=== PATIENT | female | born 1940 | race Caucasian/White ===

== ENCOUNTER 2018-12-31 13:44 | Emergency (ER) | payer MEDICARE, OTHER ==
[2018-12-31] MEDS ORDERED: hydrOXYzine HCl 50 MG/ML SDV IM ONE (13:52)
[2018-12-31] MEDS ORDERED: Albuterol/Ipratropium 3.0-0.5 MG/3 ML Neb Soln NEB ONE (13:53)
[2018-12-31] MEDS ORDERED: methylPREDNISolone Sodium Succinate 125 MG/2 ML SDV IVPUSH ONE (13:54)
--- NOTE | 2018-12-31 13:56 | EDM.PDOC ---
ED HPI GENERAL MEDICAL PROBLEM - General Stated Complaint: SOB Time Seen by Provider: 12/31/18 13:44 Source of Information: Reports: Patient, EMS, Family History Limitations: Reports: Respiratory Distress - History of Present Illness INITIAL COMMENTS - FREE TEXT/NARRATIVE: 78 y.o.w.f came by EMS to the ED after she broke out with a rash with itching throughout her entire integument and chills. She has SOB as well. No tongue swelling, however. Pt did not have any drug allergy in the past. No exposure to environmental hazards. No N/V/D or any other acute med issues. BP 139/86 pulse 73 RR22 Pulse ox on RA was 90 and on 2 liters O2 by NC 94 % Temp. No fever as per nurse. Please see the nursing note. Onset Date: 12/31/18 Onset Time: 10:00 Duration: Hour(s):, Constant, Getting Worse Location: Reports: Generalized Quality: Reports: Other (itch) Severity: Mild Improves with: Reports: None Worsens with: Reports: None Context: Reports: Other (gen rash and SOB after taking PCN) Associated Symptoms: Reports: Shortness of Breath, Other (chills) - Related Data Allergies Allergy/AdvReac Type Severity Reaction Status Date / Time No Known Allergies Allergy Verified 12/31/18 13:53 Home Meds: Home Meds Aspirin [Halfprin] 81 mg PO DAILY 06/05/18 [History] Calcium Carbonate/Vitamin D3 [Calcium 500 + Vit D Caplet] 1 tab PO BID 06/05/18 [History] Fluticasone/Salmeterol [Advair 100-50] 1 puff INH BEDTIME 06/05/18 [History] Latanoprost [Xalatan 0.005% Ophth Soln] 1 drop EYEBOTH BEDTIME 06/05/18 [History ] Levothyroxine 150 mcg PO DAILY 06/05/18 [History] Metoprolol Tartrate 50 mg PO BID 06/05/18 [History] Multivitamin [Daily Adrienne] 1 tab PO DAILY 06/05/18 [History] Amoxicillin/Clavulanate K [Augmentin 875-125 MG] 1 tab PO BID 12/31/18 [History] Ciprofloxacin [Ciprofloxacin HCl] 500 mg PO BID #20 tab 12/31/18 [Rx] hydrOXYzine pamoate [Vistaril] 50 mg PO Q6H PRN #18 cap 12/31/18 [Rx] predniSONE [Prednisone] 10 mg PO ASDIRECTED 12/31/18 [History] Past Medical History - Past Health History Medical/Surgical History: Denies Medical/Surgical History HEENT History: Reports: Glaucoma, Impaired Vision Cardiovascular History: Reports: Other (See Below) Other Cardiovascular History: on screening for hypertension. Respiratory History: Reports: Asthma, COPD [employer] History: Reports: Musculoskeletal History: Reports: Osteoarthritis, Other (See Below) Other Musculoskeletal History: degenerative joint disease, lumbago Endocrine/Metabolic History: Reports: Hypothyroidism - Past Surgical History Endocrine Surgical History: Reports: None Social & Family History - Family History Family Medical History: Noncontributory - Caffeine Use Caffeine Use: Reports: Coffee, Tea ED ROS GENERAL - Review of Systems Review Of Systems: See Below Constitutional: Reports: Other (chills) HEENT: Reports: No Symptoms Respiratory: Reports: Shortness of Breath Cardiovascular: Reports: No Symptoms Endocrine: Reports: No Symptoms GI/Abdominal: Reports: No Symptoms : Reports: No Symptoms Musculoskeletal: Reports: No Symptoms Skin: Reports: Erythema, Urticaria (generalized) Neurological: Reports: No Symptoms Psychiatric: Reports: No Symptoms Hematologic/Lymphatic: Reports: No Symptoms Immunologic: Reports: No Symptoms ED EXAM, GENERAL - Physical Exam Exam: See Below Exam Limited By: Respiratory Distress General Appearance: Alert, WD/WN, Mild Distress, Moderate Distress Eye Exam: Bilateral Eye: Normal Inspection Ears: Normal External Exam, Normal Canal Ear Exam: Bilateral Ear: Auricle Normal Nose: Normal Inspection, Normal Mucosa, No Blood Throat/Mouth: Normal Lips, Normal Voice, No Airway Compromise Head: Atraumatic, Normocephalic Neck: Normal Inspection, Supple, Non-Tender, Full Range of Motion Respiratory/Chest: Wheezing, Prolonged Expiration Cardiovascular: Normal Peripheral Pulses, Regular Rate, Rhythm, No Edema, No Gallop, No JVD, No Murmur Peripheral Pulses: 2+: Brachial (L) GI/Abdominal: Normal Bowel Sounds, Soft, Non-Tender, No Organomegaly, No Mass, Pelvis Stable (Female) Exam: Deferred Rectal (Female) Exam: Deferred Back Exam: Normal Inspection, Full Range of Motion Extremities: Normal Inspection, Normal Range of Motion, Non-Tender, No Pedal Edema, Normal Capillary Refill Neurological: Alert, Oriented, CN II-XII Intact, Normal Cognition, No Motor/ Sensory Deficits Psychiatric: Normal Affect, Normal Mood Skin Exam: Warm, Dry, Intact, Rash (urticarial) Lymphatic: No Adenopathy Course - Vital Signs Text/Narrative:: 78 y.o.w.f came by EMS to the ED after she broke out with a rash with itching throughout her entire integument and chills. She has SOB as well. No tongue swelling, however. Pt did not have any drug allergy in the past. No exposure to environmental hazards. No N/V/D or any other acute med issues. BP 139/86 pulse 73 RR22 Pulse ox on RA was 90 and on 2 liters O2 by NC 94 % Temp. No fever as per nurse. Please see the nursing note. PE: WNWD W F in resp distress and a PCN rash. Imaging: Mela CT Chest: Neg for PE as per RAD LabS: WBC 14K HCT 16.6 D Dimer 1.12 BUN 19 Cr 1.0 GFR 53 Lactic acid 3.4 Trop 0.017 Impression: Allergy to PCN with a urticarial rash and drug induced asthma. Elevated D Dimer Tx: Duoneb, Solu Medrol, Vistaril. Reexam: Rash sub subsided, Exp wheezing subsided. Pt was on 95% on RA on D/C, was ambulating fine Castillo: D/C with instructions Last Recorded V/S: Last Vital Signs Temp Pulse 82 12/31/18 13:53 Resp 22 H 12/31/18 13:44 BP 139/86 12/31/18 13:44 Pulse Ox 96 12/31/18 13:44 - Orders/Labs/Meds Orders: Active Orders 24 hr Category Date Time Status RT Aerosol Therapy [RC] ASDIRECTED Care 12/31/18 13:53 Active Ang Chest [CT] Stat Exams 12/31/18 14:54 Taken Sodium Chloride 0.9% [Saline Flush] Med 12/31/18 14:06 Active 10 ml FLUSH ASDIRECTED PRN Saline Lock Insert [OM.PC] Routine Oth 12/31/18 14:06 Ordered Medication Orders Sodium Chloride (Saline Flush) 10 ml FLUSH ASDIRECTED PRN PRN Reason: Keep Vein Open Last Admin: 12/31/18 14:30 Dose: 10 ml Labs: Laboratory Tests 12/31/18 12/31/18 12/31/18 Range/Units 14:10 14:10 14:10 WBC 14.0 H (4.5-12.0) X10-3/uL RBC 5.14 (3.23-5.20) x10(6)uL Hgb 16.7 H (11.5-15.5) g/dL Hct 48.0 (30.0-51.3) % MCV 93.4 (80-96) fL MCH 32.5 (27.7-33.6) pg MCHC 34.8 (32.2-35.4) g/dL RDW 12.3 (11.5-15.5) % Plt Count 257 (125-369) X10(3)uL MPV 8.8 (7.4-10.4) fL Neut % (Auto) 57.6 (46-82) % Lymph % (Auto) 35.4 (13-37) % Webb % (Auto) 5.2 (4-12) % Eos % (Auto) 2 (1.0-5.0) % Baso % (Auto) 0 (0-2) % Neut # (Auto) 8.1 (1.6-8.3) # Lymph # (Auto) 5.0 (0.6-5.0) # Webb # (Auto) 0.7 (0.0-1.3) # Eos # (Auto) 0.2 (0.0-0.8) # Baso # (Auto) 0.0 (0.0-0.2) # PT 10.0 (8.7-11.1) INR 1.03 (0.89-1.13) D-Dimer, Quantitative 1.12 H (0.0-0.59) mg/LFEU Sodium 139 (135-145) mmol/L Potassium 3.7 (3.5-5.3) mmol/L Chloride 103 (100-110) mmol/L Carbon Dioxide 23 (21-32) mmol/L BUN 19 H (7-18) mg/dL Creatinine 1.0 (0.55-1.02) mg/dL Est Cr Clr Drug Dosing 36.08 mL/min Estimated GFR (MDRD) 53 L (>60) BUN/Creatinine Ratio 19.0 (9-20) Glucose 157 H (80-116) mg/dL Lactic Acid (0.4-2.2) mmol/L Calcium 9.9 (8.6-10.2) mg/dL Troponin I (<0.017-0.056) ng/mL 12/31/18 12/31/18 Range/Units 14:10 14:10 WBC (4.5-12.0) X10-3/uL RBC (3.23-5.20) x10(6)uL Hgb (11.5-15.5) g/dL Hct (30.0-51.3) % MCV (80-96) fL MCH (27.7-33.6) pg MCHC (32.2-35.4) g/dL RDW (11.5-15.5) % Plt Count (125-369) X10(3)uL MPV (7.4-10.4) fL Neut % (Auto) (46-82) % Lymph % (Auto) (13-37) % Webb % (Auto) (4-12) % Eos % (Auto) (1.0-5.0) % Baso % (Auto) (0-2) % Neut # (Auto) (1.6-8.3) # Lymph # (Auto) (0.6-5.0) # Webb # (Auto) (0.0-1.3) # Eos # (Auto) (0.0-0.8) # Baso # (Auto) (0.0-0.2) # PT (8.7-11.1) INR (0.89-1.13) D-Dimer, Quantitative (0.0-0.59) mg/LFEU Sodium (135-145) mmol/L Potassium (3.5-5.3) mmol/L Chloride (100-110) mmol/L Carbon Dioxide (21-32) mmol/L BUN (7-18) mg/dL Creatinine (0.55-1.02) mg/dL Est Cr Clr Drug Dosing mL/min Estimated GFR (MDRD) (>60) BUN/Creatinine Ratio (9-20) Glucose (80-116) mg/dL Lactic Acid 3.4 H (0.4-2.2) mmol/L Calcium (8.6-10.2) mg/dL Troponin I < 0.017 L (<0.017-0.056) ng/mL Meds: Medications Generic Name Dose Route Start Last Admin Trade Name Freq PRN Reason Stop Dose Admin Sodium Chloride 10 ml 12/31/18 14:06 12/31/18 14:30 Saline Flush FLUSH 10 ml ASDIRECTED PRN Administration Keep Vein Open Discontinued Medications Generic Name Dose Route Start Last Admin Trade Name Freq PRN Reason Stop Dose Admin Albuterol/Ipratropium 3 ml 12/31/18 13:53 12/31/18 13:59 Duoneb 3.0-0.5 Mg/3 Ml NEB 12/31/18 13:54 3 ml ONETIME ONE Administration Ciprofloxacin 500 mg 12/31/18 16:07 12/31/18 16:21 Ciprofloxacin Hcl PO 12/31/18 16:08 500 mg ONETIME ONE Administration Hydroxyzine HCl 50 mg 12/31/18 13:52 12/31/18 14:01 Vistaril IM 12/31/18 13:53 50 mg ONETIME ONE Administration Iopamidol 100 ml 12/31/18 15:14 12/31/18 15:19 Isovue-370 (76%) IV 12/31/18 15:15 85 ml . DIRECTED ONE Administration Methylprednisolone Sodium Succinate 125 mg 12/31/18 13:54 12/31/18 14:05 Solu-Medrol IVPUSH 12/31/18 13:55 125 mg ONETIME ONE Administration Departure - Departure Time of Disposition: 16:26 Disposition: Home, Self-Care 01 Condition: Good Clinical Impression: Allergy to penicillin, Urticaria due to drug allergy - Discharge Information Prescriptions: Ciprofloxacin [Ciprofloxacin HCl] 500 mg PO BID #20 tab hydrOXYzine pamoate [Vistaril] 50 mg PO Q6H PRN #18 cap PRN Reason: for itching and a rash Instructions: Drug Allergy, [id number] Referrals: Annabella Cash NP [Primary Care Provider] - Forms: ED Department Discharge Additional Instructions: Please stop taking Amoxicillin/Pennicillin, please take Cipro instead. Please your usual dose of prednison tonight and continue your regular meds tomorrow. Please follow up, come back if your symptoms get worse acutely - My Orders Last 24 Hours: My Active Orders 12/31/18 13:53 RT Aerosol Therapy [RC] ASDIRECTED 12/31/18 14:06 Sodium Chloride 0.9% [Saline Flush] 10 ml FLUSH ASDIRECTED PRN Saline Lock Insert [OM.PC] Routine 12/31/18 14:54 Ang Chest [CT] Stat - Assessment/Plan Last 24 Hours: My Active Orders 12/31/18 13:53 RT Aerosol Therapy [RC] ASDIRECTED 12/31/18 14:06 Sodium Chloride 0.9% [Saline Flush] 10 ml FLUSH ASDIRECTED PRN Saline Lock Insert [OM.PC] Routine 12/31/18 14:54 Ang Chest [CT] Stat
[2018-12-31 14:01] VITALS: BP 139/86
[2018-12-31] MEDS ORDERED: Sodium Chloride 0.9% 10 ML Syringe FLUSH PRN (14:06)
[2018-12-31] MEDS ORDERED: Iopamidol 755 Mg/ML 100 ML Bottle IV ONE (15:14)
[2018-12-31] MEDS ORDERED: Ciprofloxacin 500 MG Tab PO ONE (16:07)
--- NOTE | 2019-01-01 08:18 | CT ---
INDICATION: Short of breath. D-dimer elevated. Question pulmonary emboli. COMPUTERIZED TOMOGRAPHY ANGRIOGRAPHY OF THE CHEST WITH CONTRAST: Spiral 1.25 mm axial sections were obtained through the chest with sagittal and coronal reconstructions utilizing 85 ml Isovue 370 at 3 cc per second 12/31/18--no comparisons. Total exam DLP =816.18 mGy-cm. Calcifications are noted in the aortic arch and coronary arteries. The heart appears slightly enlarged. No pericardial effusion was seen. No mediastinal mass was seen. Mild degree of mediastinal lymphadenopathy is noted, which is nonspecific. A definite active infiltrate or effusion was not identified. No nodular masses were suggested. Minimal fibrotic and/or linear atelectatic change is noted in the middle lobe at the lung base and very minimally at the lingula. The gallbladder is absent compared with its history of its removal. A mild degree of renal cortical scarring is suggested. What appear to be parapelvic cysts are noted at the left kidney. There are some mild to moderate degenerative changes in the mid to lower thoracic spine. Minimal loss of vertebral body volume is noted at a lower middle thoracic vertebral body likely old. No definite acute pulmonary emboli were identified--no obstructive pulmonary emboli were seen. In peripheral pul. arteries especially in the upper lung field on the right, there is question of possibility of old--chronic pulmonary emboli. Again, these are not obstructive in appearance. The study was otherwise unremarkable except noted dextroconvex scoliosis of the lower middle thoracic spine. IMPRESSION: 1. Cannot exclude chronic or previous partially obstructive more peripheral pulmonary emboli. No definite acute pulmonary emboli are identified. 2. No definite acute process therefore. 3. ASHD with cardiomegaly. 4. Degenerative changes disc disease and scoliosis in the lower middle thoracic spine. 5. Atherosclerotic changes in the aorta. Report was called to Dr. Mendieta at 1654 hours. [facility]
== END 2018-12-31 17:29 | disposition home or self-care (01) ==
LOC: FB.ED 13:44
DX: L50.0 Allergic urticaria (principal); T36.0X5A Adverse effect of penicillins, initial encounter; Z79.82 Long term (current) use of aspirin; Z79.899 Other long term (current) drug therapy; J44.9 Chronic obstructive pulmonary disease, unspecified; R79.1 Abnormal coagulation profile
CPT/HCPCS: 36415; 71275; 80048; 83605; 84484; 85025; 85379; 85610; 94640; 96372; 96374; 99283; A9270; J2930; J3410; Q9967; J7620-GY

== ENCOUNTER 2020-07-30 19:16 | Observation (INO) | payer MEDICARE ==
[~2020-07-30 19:16] MED LIST: Metoprolol Tartrate 50 MG Tab PO SCH
--- NOTE | 2020-07-30 22:42 | EDM.PDOC ---
ED HPI GENERAL MEDICAL PROBLEM - General Stated Complaint: COVID SYMTPOMS Time Seen by Provider: 07/30/20 20:00 Source of Information: Reports: Patient, Family History Limitations: Reports: No Limitations - History of Present Illness INITIAL COMMENTS - FREE TEXT/NARRATIVE: c/o emesis lives alone, 49 yo son has pneumonia and is in hosp here (not COVID), pt had nausea in early afternoon, visited son, in hosp parking lot she suddenly vomited, got home and vomited again, no CP, no f/c/d says she feels fine, here dtr Jaquelin is a PA in [place], at phone [phone]. Jaquelin and I had a long conversation and both agreed that cardiac ischemia is in the differential and wanted to admit to obs bed to r/o [place], pt agrees, d/w ZHENG Hernandez, will go to room 108 has had 2 loose brown stools today u/a meets criteria for a uti inc'd wbc and left shift of uncertain etiology, does have UTI but doubt infection as a cause (no fever, CxR neg, CRP neg) altho adrenergic surge could cause increase of wbc and segs EKG with no comparison shows LVH and PRWP, altho trop is neg, cardiac ischemia is a concern 9m ago in October, now drinking wine daily which may account for inc'd LFTs altho there is no comparison has had diverticulitis in past altho no abd pain or back pain today does have ketones in urine and will need hydration son with Down lies in a long term, getting dementia which has been very s tressful for pt Lorena Cash PCP, last seen 3m ago for yearly refill of meds pt denies prior CV problems despite abnormal EKG, on metoprolol for years since she had radiation for her thyroid and may have had SVT as per Jaquelin COVALY neg, CxR neg on prelim ED view - Related Data Allergies Allergy/AdvReac Type Severity Reaction Status Date / Time amoxicillin [From Augmentin] Allergy Respiratory Verified 07/30/20 23:43 Distress clavulanic acid Allergy Respiratory Verified 07/30/20 23:43 [From Augmentin] Distress fish Allergy Vomiting Uncoded 07/30/20 23:48 Home Meds: Home Meds Aspirin [Halfprin] 81 mg PO DAILY 06/05/18 [History] Fluticasone/Salmeterol [Advair 100-50] 1 puff INH BEDTIME 06/05/18 [History] Latanoprost [Xalatan 0.005% Ophth Soln] 1 drop EYEBOTH BEDTIME 06/05/18 [History] Levothyroxine 150 mcg PO DAILY 06/05/18 [History] Metoprolol Tartrate 50 mg PO BID 06/05/18 [History] Multivitamin [Daily Adrienne] 1 tab PO DAILY 06/05/18 [History] .Calcium 1 dose PO ASDIRECTED 07/30/20 [History] .Vitamin D 1 dose PO ASDIRECTED 07/30/20 [History] Past Medical History - Past Health History Medical/Surgical History: Denies Medical/Surgical History HEENT History: Reports: Glaucoma, Impaired Vision Cardiovascular History: Reports: Other (See Below) Other Cardiovascular History: on screening for hypertension. 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: Musculoskeletal History: Reports: Osteoarthritis, Other (See Below) Other Musculoskeletal History: degenerative joint disease, lumbago Endocrine/Metabolic History: Reports: Hypothyroidism - Past Surgical History Endocrine Surgical History: Reports: None Social & Family History - Family History Family Medical History: No Pertinent Family History - Caffeine Use Caffeine Use: Reports: Coffee, Tea ED ROS GENERAL - Review of Systems Review Of Systems: See Below Constitutional: Reports: No Symptoms HEENT: Reports: No Symptoms Respiratory: Reports: No Symptoms Cardiovascular: Reports: No Symptoms Endocrine: Reports: No Symptoms GI/Abdominal: Reports: Diarrhea, Nausea, Vomiting : Reports: No Symptoms Musculoskeletal: Reports: No Symptoms Skin: Reports: No Symptoms Neurological: Reports: No Symptoms Psychiatric: Reports: No Symptoms Hematologic/Lymphatic: Reports: No Symptoms Immunologic: Reports: No Symptoms ED EXAM, GENERAL - Physical Exam Exam: See Below Exam Limited By: No Limitations General Appearance: Alert, WD/WN, No Apparent Distress Nose: Normal Inspection Throat/Mouth: Normal Inspection Head: Atraumatic, Normocephalic Neck: Normal Inspection, Supple, Non-Tender, Full Range of Motion. No: Lymphadenopathy (R), Lymphadenopathy (L) Respiratory/Chest: No Respiratory Distress, Lungs Clear, Normal Breath Sounds, No Accessory Muscle Use, Chest Non-Tender Cardiovascular: Regular Rate, Rhythm, No Edema, No Gallop, No Murmur GI/Abdominal: Soft, Non-Tender, No Distention Back Exam: Normal Inspection, Full Range of Motion, NT Extremities: Normal Inspection, Normal Range of Motion, Non-Tender, No Pedal Edema Neurological: Alert, Oriented, CN II-XII Intact, Normal Cognition, Normal Gait, No Motor/Sensory Deficits Psychiatric: Normal Affect, Normal Mood Skin Exam: Warm, Dry, Intact, Normal Color, No Rash Lymphatic: No Adenopathy Course - Vital Signs Last Recorded V/S: Last Vital Signs Temp 37.2 C 07/30/20 19:20 Pulse 93 07/30/20 19:20 Resp 18 07/30/20 19:20 BP 157/74 H 07/30/20 19:20 Pulse Ox 98 07/30/20 19:20 - Orders/Labs/Meds Orders: Active Orders 24 hr Category Date Time Status EKG Documentation Completion [RC] ASDIRECTED Care 07/30/20 19:24 Active Chest 1V Frontal [CR] Stat Exams 07/30/20 19:23 Taken EKG 12 Lead [EK] Routine Ther 07/30/20 19:23 Ordered Medication Orders Acetaminophen (Tylenol) 650 mg PO Q4H PRN PRN Reason: Pain (Mild 1-3)/fever Aspirin (Halfprin) 81 mg PO DAILY [facility] Sodium Chloride (Normal Saline) 1,000 mls @ 150 mls/hr IV ASDIRECTED YOSSI Latanoprost (Xalatan 0.005% Ophth Soln) ml EYEBOTH BEDTIME [facility] Levothyroxine Sodium (Levothyroxine) 150 mcg PO DAILY [facility] Metoprolol Tartrate (Lopressor) 50 mg PO BID YOSSI Ondansetron HCl (Zofran) 4 mg IV Q4H PRN PRN Reason: Nausea/Vomiting Trimethoprim/Sulfamethoxazole (Septra Ds) 1 tab PO BID YOSSI Stop: 08/06/20 09:01 Zolpidem Tartrate (Ambien) 5 mg PO BEDTIME PRN PRN Reason: Sleep Labs: Laboratory Tests 07/30/20 07/30/20 07/30/20 Range/Units 19:48 19:48 19:48 WBC 11.2 H (3.0-10.3) x10-3/uL RBC 4.71 (3.60-5.20) x10(6)uL Hgb 14.7 (11.4-15.5) g/dL Hct 45.2 (34.2-48.2) % MCV 96.0 (76.7-100.5) fL MCH 31.3 (23.9-33.9) pg MCHC 32.6 (31.9-34.8) g/dL RDW 13.1 (12.3-16.5) % Plt Count 234 (151-488) x10(3)uL MPV 8.8 (7.1-12.4) fL Neut % (Auto) 91.0 H (30.8-76.2) % Lymph % (Auto) 3.5 L (18.4-52.1) % Rogers % (Auto) 3.5 L (4.4-15.7) % Eos % (Auto) 1.9 (0.6-8.1) % Baso % (Auto) 0.1 L (0.2-1.5) % Neut # (Auto) 10.2 H (1.5-6.3) x10-3/uL Lymph # (Auto) 0.4 L (1.0-4.4) x10-3/uL Rogers # (Auto) 0.4 (0.3-1.0) x10-3/uL Eos # (Auto) 0.2 (0.0-0.8) x10-3/uL Baso # (Auto) 0.0 (0.0-0.1) x10-3/uL PT (9.0-11.1) sec INR (1.00-1.24) APTT (24.4-33.2) SECONDS D-Dimer, Quantitative (0.0-0.59) mg/LFEU Sodium 138 (135-145) mmol/L Potassium 4.1 (3.5-5.3) mmol/L Chloride 101 (100-110) mmol/L Carbon Dioxide 23 (21-32) mmol/L BUN 19 H (7-18) mg/dL Creatinine 0.8 (0.55-1.02) mg/dL Est Cr Clr Drug Dosing TNP Estimated GFR (MDRD) > 60 (>60) BUN/Creatinine Ratio 23.8 H (9-20) Glucose 143 H (80-116) mg/dL Lactic Acid (0.4-2.0) mmol/L Calcium 9.3 (8.6-10.2) mg/dL Total Bilirubin 0.8 (0.1-1.3) mg/dL AST 75 H (5-25) IU/L ALT 85 H (12-36) U/L Alkaline Phosphatase 86 (56-112) IU/L Troponin I 7.3 (4.0-60.3) pg/mL C-Reactive Protein 0.6 (0.5-0.9) mg/dL NT-Pro-B Natriuret Pep (<=450) pg/mL Total Protein 7.5 (6.0-8.0) g/dL Albumin 3.8 (3.2-4.6) g/dL Globulin 3.7 g/dL Albumin/Globulin Ratio 1.0 TSH, Ultra Sensitive (0.36-3.74) IU/mL Urine Color (YELLOW) Urine Appearance (CLEAR) Urine pH (5.0-6.5) Ur Specific Kermit (1.010-1.025) Urine Protein (NEGATIVE) mg/dL Urine Glucose (UA) (NORMAL) mg/dL Urine Ketones (NEGATIVE) mg/dL Urine Occult Blood (NEGATIVE) Urine Nitrite (NEGATIVE) Urine Bilirubin (NEGATIVE) Urine Urobilinogen (NEGATIVE) mg/dL Ur Leukocyte Esterase (NEGATIVE) Urine RBC (0-5) Urine WBC (0-5) Ur Squamous Epith Cells (NS,R,O) Urine Bacteria (NS) Urine Mucus (NS) SARS-CoV-2 RNA (RENNY) (NEGATIVE) 07/30/20 07/30/20 07/30/20 Range/Units 19:48 19:48 19:48 WBC (3.0-10.3) x10-3/uL RBC (3.60-5.20) x10(6)uL Hgb (11.4-15.5) g/dL Hct (34.2-48.2) % MCV (76.7-100.5) fL MCH (23.9-33.9) pg MCHC (31.9-34.8) g/dL RDW (12.3-16.5) % Plt Count (151-488) x10(3)uL MPV (7.1-12.4) fL Neut % (Auto) (30.8-76.2) % Lymph % (Auto) (18.4-52.1) % Rogers % (Auto) (4.4-15.7) % Eos % (Auto) (0.6-8.1) % Baso % (Auto) (0.2-1.5) % Neut # (Auto) (1.5-6.3) x10-3/uL Lymph # (Auto) (1.0-4.4) x10-3/uL Rogers # (Auto) (0.3-1.0) x10-3/uL Eos # (Auto) (0.0-0.8) x10-3/uL Baso # (Auto) (0.0-0.1) x10-3/uL PT 11.0 (9.0-11.1) sec INR 1.02 (1.00-1.24) APTT 20.9 L (24.4-33.2) SECONDS D-Dimer, Quantitative 0.58 (0.0-0.59) mg/LFEU Sodium (135-145) mmol/L Potassium (3.5-5.3) mmol/L Chloride (100-110) mmol/L Carbon Dioxide (21-32) mmol/L BUN (7-18) mg/dL Creatinine (0.55-1.02) mg/dL Est Cr Clr Drug Dosing Estimated GFR (MDRD) (>60) BUN/Creatinine Ratio (9-20) Glucose (80-116) mg/dL Lactic Acid 1.9 (0.4-2.0) mmol/L Calcium (8.6-10.2) mg/dL Total Bilirubin (0.1-1.3) mg/dL AST (5-25) IU/L ALT (12-36) U/L Alkaline Phosphatase (56-112) IU/L Troponin I (4.0-60.3) pg/mL C-Reactive Protein (0.5-0.9) mg/dL NT-Pro-B Natriuret Pep (<=450) pg/mL Total Protein (6.0-8.0) g/dL Albumin (3.2-4.6) g/dL Globulin g/dL Albumin/Globulin Ratio TSH, Ultra Sensitive 5.09 H (0.36-3.74) IU/mL Urine Color (YELLOW) Urine Appearance (CLEAR) Urine pH (5.0-6.5) Ur Specific Kermit (1.010-1.025) Urine Protein (NEGATIVE) mg/dL Urine Glucose (UA) (NORMAL) mg/dL Urine Ketones (NEGATIVE) mg/dL Urine Occult Blood (NEGATIVE) Urine Nitrite (NEGATIVE) Urine Bilirubin (NEGATIVE) Urine Urobilinogen (NEGATIVE) mg/dL Ur Leukocyte Esterase (NEGATIVE) Urine RBC (0-5) Urine WBC (0-5) Ur Squamous Epith Cells (NS,R,O) Urine Bacteria (NS) Urine Mucus (NS) SARS-CoV-2 RNA (RENNY) (NEGATIVE) 07/30/20 07/30/20 07/30/20 Range/Units 19:48 20:30 22:00 WBC (3.0-10.3) x10-3/uL RBC (3.60-5.20) x10(6)uL Hgb (11.4-15.5) g/dL Hct (34.2-48.2) % MCV (76.7-100.5) fL MCH (23.9-33.9) pg MCHC (31.9-34.8) g/dL RDW (12.3-16.5) % Plt Count (151-488) x10(3)uL MPV (7.1-12.4) fL Neut % (Auto) (30.8-76.2) % Lymph % (Auto) (18.4-52.1) % Rogers % (Auto) (4.4-15.7) % Eos % (Auto) (0.6-8.1) % Baso % (Auto) (0.2-1.5) % Neut # (Auto) (1.5-6.3) x10-3/uL Lymph # (Auto) (1.0-4.4) x10-3/uL Rogers # (Auto) (0.3-1.0) x10-3/uL Eos # (Auto) (0.0-0.8) x10-3/uL Baso # (Auto) (0.0-0.1) x10-3/uL PT (9.0-11.1) sec INR (1.00-1.24) APTT (24.4-33.2) SECONDS D-Dimer, Quantitative (0.0-0.59) mg/LFEU Sodium (135-145) mmol/L Potassium (3.5-5.3) mmol/L Chloride (100-110) mmol/L Carbon Dioxide (21-32) mmol/L BUN (7-18) mg/dL Creatinine (0.55-1.02) mg/dL Est Cr Clr Drug Dosing Estimated GFR (MDRD) (>60) BUN/Creatinine Ratio (9-20) Glucose (80-116) mg/dL Lactic Acid (0.4-2.0) mmol/L Calcium (8.6-10.2) mg/dL Total Bilirubin (0.1-1.3) mg/dL AST (5-25) IU/L ALT (12-36) U/L Alkaline Phosphatase (56-112) IU/L Troponin I (4.0-60.3) pg/mL C-Reactive Protein (0.5-0.9) mg/dL NT-Pro-B Natriuret Pep 245 (<=450) pg/mL Total Protein (6.0-8.0) g/dL Albumin (3.2-4.6) g/dL Globulin g/dL Albumin/Globulin Ratio TSH, Ultra Sensitive (0.36-3.74) IU/mL Urine Color Yellow (YELLOW) Urine Appearance Slightly cloudy (CLEAR) Urine pH 5.0 (5.0-6.5) Ur Specific Kermit 1.030 H (1.010-1.025) Urine Protein Trace (NEGATIVE) mg/dL Urine Glucose (UA) Normal (NORMAL) mg/dL Urine Ketones 15 H (NEGATIVE) mg/dL Urine Occult Blood Large H (NEGATIVE) Urine Nitrite Negative (NEGATIVE) Urine Bilirubin Small H (NEGATIVE) Urine Urobilinogen Normal (NEGATIVE) mg/dL Ur Leukocyte Esterase Large H (NEGATIVE) Urine RBC 5-10 H (0-5) Urine WBC 20-30 H (0-5) Ur Squamous Epith Cells Few H (NS,R,O) Urine Bacteria Few H (NS) Urine Mucus Few H (NS) SARS-CoV-2 RNA (RENNY) Negative (NEGATIVE) Meds: Medications Generic Name Dose Route Start Last Admin Trade Name Freq PRN Reason Stop Dose Admin Acetaminophen 650 mg 12/20/20 23:14 Tylenol PO Q4H PRN Pain (Mild 1-3)/fever Aspirin 81 mg 07/31/20 09:00 Halfprin PO DAILY YOSSI Sodium Chloride 1,000 mls @ 150 mls/hr 07/30/20 23:15 Normal Saline IV ASDIRECTED YOSSI Latanoprost ml 07/31/20 21:00 Xalatan 0.005% Ophth Soln EYEBOTH BEDTIME YOSSI Levothyroxine Sodium 150 mcg 07/31/20 09:00 Levothyroxine PO DAILY YOSSI Metoprolol Tartrate 50 mg 07/30/20 23:30 Lopressor PO BID YOSSI Ondansetron HCl 4 mg 07/30/20 23:14 Zofran IV Q4H PRN Nausea/Vomiting Trimethoprim/Sulfamethoxazole 1 tab 07/30/20 23:30 Septra Ds PO 08/06/20 09:01 BID YOSSI Zolpidem Tartrate 5 mg 07/30/20 23:14 Ambien PO BEDTIME PRN Sleep Departure - Departure Time of Disposition: 22:35 Disposition: Refer to Observation Condition: Good Clinical Impression: Vomiting, Abnormal EKG, Elevated WBC count, Left-shifted white blood cells, Daily consumption of alcohol, Grief reaction, Elevated liver function tests, LVH (left ventricular hypertrophy), Urinary tract infection, Diarrhea, Mild dehydration, Ketonuria - Discharge Information *PRESCRIPTION DRUG MONITORING PROGRAM REVIEWED*: Not Applicable *COPY OF PRESCRIPTION DRUG MONITORING REPORT IN PATIENT MARTÍN: Not Applicable Sepsis Event Note (ED) - Focused Exam Vital Signs: Vital Signs Temp Pulse Resp BP Pulse Ox 07/30/20 19:20 37.2 C 93 18 157/74 H 98 - My Orders Last 24 Hours: My Active Orders 07/30/20 19:23 Chest 1V Frontal [CR] Stat EKG 12 Lead [EK] Routine 07/30/20 19:24 EKG Documentation Completion [RC] ASDIRECTED - Assessment/Plan Last 24 Hours: My Active Orders 07/30/20 19:23 Chest 1V Frontal [CR] Stat EKG 12 Lead [EK] Routine 07/30/20 19:24 EKG Documentation Completion [RC] ASDIRECTED
[2020-07-30] MEDS ORDERED: Zolpidem 5 MG Tab PO PRN (23:14)
[2020-07-30] MEDS ORDERED: Acetaminophen 325 MG Tab PO PRN (23:14)
[2020-07-30] MEDS ORDERED: Sulfamethoxazole/Trimethoprim 800-160 MG Tab PO SCH (23:30)
[2020-07-31] MEDS: Sodium Chloride 0.9% 1,000 ML IV SCH ×2 (01:21→09:12)
[2020-07-31] MEDS: Ondansetron 4 MG/2 ML SDV IV PRN ×2 (01:25→10:05)
[2020-07-31] MEDS ORDERED: Sodium Chloride 0.9% 10 ML Syringe FLUSH PRN (07:31)
--- NOTE | 2020-07-31 08:56 | PCM.HP.2 ---
H&P History of Present Illness - General Date of Service: 07/31/20 Admit Problem/Dx: Admission Diagnosis/Problem Admission Diagnosis/Problem Vomiting Source of Information: Patient History Limitations: Reports: No Limitations - History of Present Illness Initial Comments - Free Text/Narative: Gina was admitted with vomiting nausea yesterday. This was fairly sudden onset. She was worried about cough with symptoms, but tested negative. She has a history of hypothyroidism, hypertension and diverticulosis that are stable. Her son is currently admitted with pneumonia. She admits to drinking 2-3 glasses of wine daily. earlier this year. - Related Data Allergies/Adverse Reactions: Allergies Allergy/AdvReac Type Severity Reaction Status Date / Time amoxicillin [From Augmentin] Allergy Respiratory Verified 07/30/20 23:43 Distress clavulanic acid Allergy Respiratory Verified 07/30/20 23:43 [From Augmentin] Distress fish Allergy Vomiting Uncoded 07/30/20 23:48 Home Medications: Home Meds Aspirin [Halfprin] 81 mg PO DAILY 06/05/18 [History] Fluticasone/Salmeterol [Advair 100-50] 1 puff INH BEDTIME 06/05/18 [History] Latanoprost [Xalatan 0.005% Ophth Soln] 1 drop EYEBOTH BEDTIME 06/05/18 [History] Levothyroxine 150 mcg PO DAILY@0600 06/05/18 [History] Metoprolol Tartrate 50 mg PO BID 06/05/18 [History] Multivitamin [Daily Adrienne] 1 tab PO DAILY 06/05/18 [History] Albuterol Sulfate [Proair Hfa] 2 puff INH Q4H PRN 07/31/20 [History] Calcium Carbonate [Calcium] 600 mg PO DAILY 07/31/20 [History] Cholecalciferol (Vitamin D3) [Vitamin D3] 1,000 unit PO DAILY 07/31/20 [History] Past Medical History - Past Health History Medical/Surgical History: Denies Medical/Surgical History HEENT History: Reports: Glaucoma, Impaired Vision Cardiovascular History: Reports: Arrhythmia Other Cardiovascular History: on screening for hypertension. Respiratory History: Reports: Asthma, COPD Gastrointestinal History: Reports: Hiatal Hernia FINE SANDER History: Reports: Other OB/BYN History: Musculoskeletal History: Reports: Osteoarthritis, Other (See Below) Other Musculoskeletal History: Degenerative joint disease. Lumbago. Bunions. Endocrine/Metabolic History: Reports: Hypothyroidism - Past Surgical History HEENT Surgical History: Reports: Eye Surgery GI Surgical History: Reports: Cholecystectomy Female Surgical History: Reports: Tubal Ligation Endocrine Surgical History: Reports: None Musculoskeletal Surgical History: Reports: Knee Replacement, Other (See Below) Other Musculoskeletal Surgeries/Procedures:: Bilateral. Social & Family History - Family History Family Medical History: No Pertinent Family History - Caffeine Use Caffeine Use: Reports: Coffee, Tea - Alcohol Use Days Per Week of Alcohol Use: 7 Number of Drinks Per Day: 3 Total Drinks Per Week: 21 - Recreational Drug Use Recreational Drug Use: No H&P Review of Systems - Review of Systems: Review Of Systems: Comprehensive ROS is negative, except as noted in HPI. Exam - Exam Exam: See Below - Vital Signs Vital Signs: Last Vital Signs Temp 98.4 F 07/31/20 03:14 Pulse 104 H 07/31/20 03:14 Resp 20 07/31/20 03:14 BP 119/69 07/31/20 03:14 Pulse Ox 93 L 07/31/20 03:14 Weight: 83.092 kg - Exam General: Alert, Oriented, 4 HEENT: PERRLA, Hearing Intact, Mucosa Moist & [place], Nares Patent, Normal Nasal Septum, Posterior Pharynx Clear, Conjunctiva Clear, EOMI, EACs Clear, TMs Clear Neck: Supple, Trachea Midline, 2 Lungs: Clear to Auscultation, Normal Respiratory Effort Cardiovascular: Regular Rate, Regular Rhythm GI/Abdominal Exam: Normal Bowel Sounds, Soft, Non-Tender, No Organomegaly, No Distention, No Abnormal Bruit, No Mass, Pelvis Stable (Female) Exam: Deferred Rectal (Female) Exam: Deferred Back Exam: Normal Inspection, Full Range of Motion, NT Extremities: Normal Inspection, Normal Range of Motion, Non-Tender, No Pedal Edema, Normal Capillary Refill Skin: Warm, Dry, Intact Neurological: Cranial Nerves Intact, Reflexes Equal Bilateral Neuro Extensive - Mental Status: Alert, Oriented x3, Normal Mood/Affect, Normal Cognition Neuro Extensive - Motor, Sensory, Reflexes: CN II-XII Intact, Normal Gait, Normal Reflexes Psychiatric: Alert, Normal Affect, Normal Mood - Patient Data Lab Results Last 24 hrs: Laboratory Results - last 24 hr 07/30/20 07/30/2020 Range/Units 19:48 19:48 19:48 WBC 11.2 H (3.0-10.3) x10-3/uL RBC 4.71 (3.60-5.20) x10(6)uL Hgb 14.7 (11.4-15.5) g/dL Hct 45.2 (34.2-48.2) % MCV 96.0 (76.7-100.5) fL MCH 31.3 (23.9-33.9) pg MCHC 32.6 (31.9-34.8) g/dL RDW 13.1 (12.3-16.5) % Plt Count 234 (151-488) x10(3)uL MPV 8.8 (7.1-12.4) fL Neut % (Auto) 91.0 H (30.8-76.2) % Lymph % (Auto) 3.5 L (18.4-52.1) % Tyler % (Auto) 3.5 L (4.4-15.7) % Eos % (Auto) 1.9 (0.6-8.1) % Baso % (Auto) 0.1 L (0.2-1.5) % Neut # (Auto) 10.2 H (1.5-6.3) x10-3/uL Lymph # (Auto) 0.4 L (1.0-4.4) x10-3/uL Tyler # (Auto) 0.4 (0.3-1.0) x10-3/uL Eos # (Auto) 0.2 (0.0-0.8) x10-3/uL Baso # (Auto) 0.0 (0.0-0.1) x10-3/uL Add Manual Diff Neutrophils % (Manual) (46-82) % Band Neutrophils % (0-6) % Lymphocytes % (Manual) (13-37) % Monocytes % (Manual) (4-12) % Eosinophils % (Manual) (0-5) % PT (9.0-11.1) sec INR (1.00-1.24) APTT (24.4-33.2) SECONDS D-Dimer, Quantitative (0.0-0.59) mg/LFEU Sodium 138 (135-145) mmol/L Potassium 4.1 (3.5-5.3) mmol/L Chloride 101 (100-110) mmol/L Carbon Dioxide 23 (21-32) mmol/L BUN 19 H (7-18) mg/dL Creatinine 0.8 (0.55-1.02) mg/dL Est Cr Clr Drug Dosing TNP Estimated GFR (MDRD) > 60 (>60) BUN/Creatinine Ratio 23.8 H (9-20) Glucose 143 H (80-116) mg/dL Lactic Acid (0.4-2.0) mmol/L Calcium 9.3 (8.6-10.2) mg/dL Total Bilirubin 0.8 (0.1-1.3) mg/dL AST 75 H (5-25) IU/L ALT 85 H (12-36) U/L Alkaline Phosphatase 86 (56-112) IU/L Troponin I 7.3 (4.0-60.3) pg/mL C-Reactive Protein 0.6 (0.5-0.9) mg/dL NT-Pro-B Natriuret Pep (<=450) pg/mL Total Protein 7.5 (6.0-8.0) g/dL Albumin 3.8 (3.2-4.6) g/dL Globulin 3.7 g/dL Albumin/Globulin Ratio 1.0 TSH, Ultra Sensitive (0.36-3.74) IU/mL Urine Color (YELLOW) Urine Appearance (CLEAR) Urine pH (5.0-6.5) Ur Specific Roxton (1.010-1.025) Urine Protein (NEGATIVE) mg/dL Urine Glucose (UA) (NORMAL) mg/dL Urine Ketones (NEGATIVE) mg/dL Urine Occult Blood (NEGATIVE) Urine Nitrite (NEGATIVE) Urine Bilirubin (NEGATIVE) Urine Urobilinogen (NEGATIVE) mg/dL Ur Leukocyte Esterase (NEGATIVE) Urine RBC (0-5) Urine WBC (0-5) Ur Squamous Epith Cells (NS,R,O) Urine Bacteria (NS) Urine Mucus (NS) SARS-CoV-2 RNA (RENNY) (NEGATIVE) 07/30/20 07/30/20 07/30/20 Range/Units 19:48 19:48 19:48 WBC (3.0-10.3) x10-3/uL RBC (3.60-5.20) x10(6)uL Hgb (11.4-15.5) g/dL Hct (34.2-48.2) % MCV (76.7-100.5) fL MCH (23.9-33.9) pg MCHC (31.9-34.8) g/dL RDW (12.3-16.5) % Plt Count (151-488) x10(3)uL MPV (7.1-12.4) fL Neut % (Auto) (30.8-76.2) % Lymph % (Auto) (18.4-52.1) % Tyler % (Auto) (4.4-15.7) % Eos % (Auto) (0.6-8.1) % Baso % (Auto) (0.2-1.5) % Neut # (Auto) (1.5-6.3) x10-3/uL Lymph # (Auto) (1.0-4.4) x10-3/uL Tyler # (Auto) (0.3-1.0) x10-3/uL Eos # (Auto) (0.0-0.8) x10-3/uL Baso # (Auto) (0.0-0.1) x10-3/uL Add Manual Diff Neutrophils % (Manual) (46-82) % Band Neutrophils % (0-6) % Lymphocytes % (Manual) (13-37) % Monocytes % (Manual) (4-12) % Eosinophils % (Manual) (0-5) % PT 11.0 (9.0-11.1) sec INR 1.02 (1.00-1.24) APTT 20.9 L (24.4-33.2) SECONDS D-Dimer, Quantitative 0.58 (0.0-0.59) mg/LFEU Sodium (135-145) mmol/L Potassium (3.5-5.3) mmol/L Chloride (100-110) mmol/L Carbon Dioxide (21-32) mmol/L BUN (7-18) mg/dL Creatinine (0.55-1.02) mg/dL Est Cr Clr Drug Dosing Estimated GFR (MDRD) (>60) BUN/Creatinine Ratio (9-20) Glucose (80-116) mg/dL Lactic Acid 1.9 (0.4-2.0) mmol/L Calcium (8.6-10.2) mg/dL Total Bilirubin (0.1-1.3) mg/dL AST (5-25) IU/L ALT (12-36) U/L Alkaline Phosphatase (56-112) IU/L Troponin I (4.0-60.3) pg/mL C-Reactive Protein (0.5-0.9) mg/dL NT-Pro-B Natriuret Pep (<=450) pg/mL Total Protein (6.0-8.0) g/dL Albumin (3.2-4.6) g/dL Globulin g/dL Albumin/Globulin Ratio TSH, Ultra Sensitive 5.09 H (0.36-3.74) IU/mL Urine Color (YELLOW) Urine Appearance (CLEAR) Urine pH (5.0-6.5) Ur Specific [place] (1.010-1.025) Urine Protein (NEGATIVE) mg/dL Urine Glucose (UA) (NORMAL) mg/dL Urine Ketones (NEGATIVE) mg/dL Urine Occult Blood (NEGATIVE) Urine Nitrite (NEGATIVE) Urine Bilirubin (NEGATIVE) Urine Urobilinogen (NEGATIVE) mg/dL Ur Leukocyte Esterase (NEGATIVE) Urine RBC (0-5) Urine WBC (0-5) Ur Squamous Epith Cells (NS,R,O) Urine Bacteria (NS) Urine Mucus (NS) SARS-CoV-2 RNA (RENNY) (NEGATIVE) 07/30/20 07/30/20 07/30/20 Range/Units 19:48 20:30 22:00 WBC (3.0-10.3) x10-3/uL RBC (3.60-5.20) x10(6)uL Hgb (11.4-15.5) g/dL Hct (34.2-48.2) % MCV (76.7-100.5) fL MCH (23.9-33.9) pg MCHC (31.9-34.8) g/dL RDW (12.3-16.5) % Plt Count (151-488) x10(3)uL MPV (7.1-12.4) fL Neut % (Auto) (30.8-76.2) % Lymph % (Auto) (18.4-52.1) % Tyler % (Auto) (4.4-15.7) % Eos % (Auto) (0.6-8.1) % Baso % (Auto) (0.2-1.5) % Neut # (Auto) (1.5-6.3) x10-3/uL Lymph # (Auto) (1.0-4.4) x10-3/uL Tyler # (Auto) (0.3-1.0) x10-3/uL Eos # (Auto) (0.0-0.8) x10-3/uL Baso # (Auto) (0.0-0.1) x10-3/uL Add Manual Diff Neutrophils % (Manual) (46-82) % Band Neutrophils % (0-6) % Lymphocytes % (Manual) (13-37) % Monocytes % (Manual) (4-12) % Eosinophils % (Manual) (0-5) % PT (9.0-11.1) sec INR (1.00-1.24) APTT (24.4-33.2) SECONDS D-Dimer, Quantitative (0.0-0.59) mg/LFEU Sodium (135-145) mmol/L Potassium (3.5-5.3) mmol/L Chloride (100-110) mmol/L Carbon Dioxide (21-32) mmol/L BUN (7-18) mg/dL Creatinine (0.55-1.02) mg/dL Est Cr Clr Drug Dosing Estimated GFR (MDRD) (>60) BUN/Creatinine Ratio (9-20) Glucose (80-116) mg/dL Lactic Acid (0.4-2.0) mmol/L Calcium (8.6-10.2) mg/dL Total Bilirubin (0.1-1.3) mg/dL AST (5-25) IU/L ALT (12-36) U/L Alkaline Phosphatase (56-112) IU/L Troponin I (4.0-60.3) pg/mL C-Reactive Protein (0.5-0.9) mg/dL NT-Pro-B Natriuret Pep 245 (<=450) pg/mL Total Protein (6.0-8.0) g/dL Albumin (3.2-4.6) g/dL Globulin g/dL Albumin/Globulin Ratio TSH, Ultra Sensitive (0.36-3.74) IU/mL Urine Color Yellow (YELLOW) Urine Appearance Slightly cloudy (CLEAR) Urine pH 5.0 (5.0-6.5) Ur Specific [place] 1.030 H (1.010-1.025) Urine Protein Trace (NEGATIVE) mg/dL Urine Glucose (UA) Normal (NORMAL) mg/dL Urine Ketones 15 H (NEGATIVE) mg/dL Urine Occult Blood Large H (NEGATIVE) Urine Nitrite Negative (NEGATIVE) Urine Bilirubin Small H (NEGATIVE) Urine Urobilinogen Normal (NEGATIVE) mg/dL Ur Leukocyte Esterase Large H (NEGATIVE) Urine RBC 5-10 H (0-5) Urine WBC 20-30 H (0-5) Ur Squamous Epith Cells Few H (NS,R,O) Urine Bacteria Few H (NS) Urine Mucus Few H (NS) SARS-CoV-2 RNA (RENNY) Negative (NEGATIVE) 07/31/20 07/31/20 07/31/20 Range/Units 06:55 06:55 06:55 WBC 8.7 (3.0-10.3) x10-3/uL RBC 4.35 (3.60-5.20) x10(6)uL Hgb 13.6 (11.4-15.5) g/dL Hct 41.8 (34.2-48.2) % MCV 96.1 (76.7-100.5) fL MCH 31.2 (23.9-33.9) pg MCHC 32.5 (31.9-34.8) g/dL RDW 13.2 (12.3-16.5) % Plt Count 207 (151-488) x10(3)uL MPV 9.1 (7.1-12.4) fL Neut % (Auto) (30.8-76.2) % Lymph % (Auto) (18.4-52.1) % Tyler % (Auto) (4.4-15.7) % Eos % (Auto) (0.6-8.1) % Baso % (Auto) (0.2-1.5) % Neut # (Auto) (1.5-6.3) x10-3/uL Lymph # (Auto) (1.0-4.4) x10-3/uL Tyler # (Auto) (0.3-1.0) x10-3/uL Eos # (Auto) (0.0-0.8) x10-3/uL Baso # (Auto) (0.0-0.1) x10-3/uL Add Manual Diff Yes Neutrophils % (Manual) 82 (46-82) % Band Neutrophils % 2 (0-6) % Lymphocytes % (Manual) 9 L (13-37) % Monocytes % (Manual) 5 (4-12) % Eosinophils % (Manual) 2 (0-5) % PT (9.0-11.1) sec INR (1.00-1.24) APTT (24.4-33.2) SECONDS D-Dimer, Quantitative (0.0-0.59) mg/LFEU Sodium 122 L D (135-145) mmol/L Potassium 3.7 (3.5-5.3) mmol/L Chloride 95 L D (100-110) mmol/L Carbon Dioxide 22 (21-32) mmol/L BUN 18 (7-18) mg/dL Creatinine 0.7 (0.55-1.02) mg/dL Est Cr Clr Drug Dosing 49.85 Estimated GFR (MDRD) > 60 (>60) BUN/Creatinine Ratio 25.7 H (9-20) Glucose 134 H (80-116) mg/dL Lactic Acid (0.4-2.0) mmol/L Calcium 8.7 (8.6-10.2) mg/dL Total Bilirubin 0.7 (0.1-1.3) mg/dL AST 73 H (5-25) IU/L ALT 71 H D (12-36) U/L Alkaline Phosphatase 66 (56-112) IU/L Troponin I 7.9 (4.0-60.3) pg/mL C-Reactive Protein (0.5-0.9) mg/dL NT-Pro-B Natriuret Pep (<=450) pg/mL Total Protein 6.5 (6.0-8.0) g/dL Albumin 3.2 (3.2-4.6) g/dL Globulin 3.3 g/dL Albumin/Globulin Ratio 1.0 TSH, Ultra Sensitive (0.36-3.74) IU/mL Urine Color (YELLOW) Urine Appearance (CLEAR) Urine pH (5.0-6.5) Ur Specific [place] (1.010-1.025) Urine Protein (NEGATIVE) mg/dL Urine Glucose (UA) (NORMAL) mg/dL Urine Ketones (NEGATIVE) mg/dL Urine Occult Blood (NEGATIVE) Urine Nitrite (NEGATIVE) Urine Bilirubin (NEGATIVE) Urine Urobilinogen (NEGATIVE) mg/dL Ur Leukocyte Esterase (NEGATIVE) Urine RBC (0-5) Urine WBC (0-5) Ur Squamous Epith Cells (NS,R,O) Urine Bacteria (NS) Urine Mucus (NS) SARS-CoV-2 RNA (RENNY) (NEGATIVE) Result Diagrams: 07/31/20 06:55 07/31/20 06:55 Juan Results Last 24 hrs: Microbiology 07/31/20 05:00 C. difficile Antigen & Toxins A,B - Final Stool / Feces #1 Interpretation EKG Date: 07/31/20 Rhythm: NSR Sepsis Event Note - Evaluation Sepsis Screening Result: No Definite Risk - Focused Exam Vital Signs: Vital Signs Temp Pulse Resp BP Pulse Ox 07/31/20 03:14 98.4 F 104 H 20 119/69 93 L 07/30/20 23:35 97.8 F 92 18 140/79 95 - Problem List (1) Hyponatremia SNOMED Code(s): 67528639 ICD Code: E87.1 - HYPO-OSMOLALITY AND HYPONATREMIA Status: Acute Current Visit: Yes (2) HTN (hypertension) SNOMED Code(s): 17738424 ICD Code: I10 - ESSENTIAL (PRIMARY) HYPERTENSION Status: Acute Current Visit: Yes Qualifiers: Hypertension type: essential hypertension Qualified Code(s): I10 - Essential (primary) hypertension (3) Daily consumption of alcohol SNOMED Code(s): 143759888 ICD Code: Z78.9 - OTHER SPECIFIED HEALTH STATUS Status: Acute Current Visit: Yes (4) Elevated liver function tests SNOMED Code(s): 673793693, 469413203 ICD Code: R79.89 - OTHER SPECIFIED ABNORMAL FINDINGS OF BLOOD CHEMISTRY Status: Acute Current Visit: Yes (5) Grief reaction SNOMED Code(s): 458475614 ICD Code: F43.21 - ADJUSTMENT DISORDER WITH DEPRESSED MOOD Status: Acute Current Visit: Yes (6) Vomiting SNOMED Code(s): 674500499 ICD Code: R11.10 - VOMITING, UNSPECIFIED Status: Acute Current Visit: Yes Qualifiers: Vomiting type: unspecified Problem List Initiated/Reviewed/Updated: Yes Orders Last 24hrs: Active Orders 24 hr Category Date Time Status Admission Status [Patient Status] [ADT] Routine ADT 07/30/20 22:33 Active Cardiac Monitoring [RC] CONTINUOUS Care 07/30/20 23:15 Active EKG Documentation Completion [RC] ASDIRECTED Care 07/30/20 19:24 Active EKG Documentation Completion [RC] ASDIRECTED Care 07/30/20 23:18 Active Oxygen Therapy [RC] PRN Care 07/30/20 23:14 Active Up ad Linda [RC] ASDIRECTED Care 07/30/20 23:14 Active VTE/DVT Education [RC] Per Unit Routine Care 07/30/20 23:14 Active Vital Signs [RC] Q4H Care 07/30/20 23:14 Active 2 Gram Sodium Diet [DIET] Diet 07/31/20 Breakfast Active Heart Healthy Diet [DIET] Diet 07/31/20 Breakfast Active Chest 1V Frontal [CR] Stat Exams 07/30/20 19:23 Taken BASIC METABOLIC PANEL,BMP [CHEM] AM Lab 08/01/20 05:11 Ordered CULTURE URINE [RM] Stat Lab 07/30/20 22:00 Received THYROXINE (T4) FREE, DIRECT, S Stat Lab 07/30/20 22:34 Received Acetaminophen [TylenoL] Med 07/30/20 23:14 Pending 650 mg PO Q4H PRN Aspirin [Halfprin] Med 07/31/20 09:00 Active 81 mg PO DAILY Latanoprost [Xalatan 0.005% Ophth Soln] Med 07/31/20 21:00 Pending DOSE ml EYEBOTH BEDTIME Levothyroxine Med 07/31/20 09:00 Pending 150 mcg PO DAILY Metoprolol Tartrate [Lopressor] Med 07/30/20 23:30 Pending 50 mg PO BID Ondansetron [Zofran] Med 07/30/20 23:14 Active 4 mg IV Q4H PRN Sodium Chloride 0.9% [Normal Saline] 1,000 ml Med 07/30/20 23:15 Active IV ASDIRECTED Sodium Chloride 0.9% [Saline Flush] Med 07/31/20 07:31 Active 10 ml FLUSH ASDIRECTED PRN Resuscitation Status Routine Resus Stat 07/30/20 23:14 Ordered EKG 12 Lead [EK] AM Ther 07/31/20 05:11 Ordered EKG 12 Lead [EK] Routine Ther 07/30/20 19:23 Ordered Medication Orders Acetaminophen (Tylenol) 650 mg PO Q4H PRN PRN Reason: Pain (Mild 1-3)/fever Aspirin (Halfprin) 81 mg PO DAILY YOSSI Sodium Chloride (Normal Saline) 1,000 mls @ 150 mls/hr IV ASDIRECTED YOSSI Last Admin: 07/31/20 01:21 Dose: 150 mls/hr Documented by: SONYA Latanoprost (Xalatan 0.005% Ophth Soln) ml EYEBOTH BEDTIME YOSSI Levothyroxine Sodium (Levothyroxine) 150 mcg PO DAILY YOSSI Metoprolol Tartrate (Lopressor) 50 mg PO BID YOSSI Ondansetron HCl (Zofran) 4 mg IV Q4H PRN PRN Reason: Nausea/Vomiting Last Admin: 07/31/20 01:25 Dose: 4 mg Documented by: SONYA Sodium Chloride (Saline Flush) 10 ml FLUSH ASDIRECTED PRN PRN Reason: IV Use Assessment/Plan Comment:: I do not see if she has any acute cord syndrome since she is asymptomatic and the laps are normal.She also has no UTI symptoms. However her sodium is low possibly due to dehydration or from alcohol consumption. Keep one more day replace fluids restrict free water to 1200 mL today repeat labs in the morning with a possible discharge then.
[2020-07-31] MEDS: Levothyroxine 150 MCG Tab PO SCH (09:51)
[2020-07-31] MEDS: Aspirin 81 MG Tab.EC PO SCH (09:51)
[2020-07-31] MEDS: Metoprolol Tartrate 50 MG Tab PO SCH ×2 (09:51→20:53)
--- NOTE | 2020-07-31 10:15 | CR ---
INDICATION: Shortness of breath CHEST, ONE VIEW: An AP upright portable view of the chest was obtained 07/30/20 and compared with 05/03/09. The heart is enlarged with LVE. The aorta is tortuous with calcification in the arch. A definite active infiltrate or effusion was not identified. No definite evidence of CHF is seen. Exogenous obesity is noted. IMPRESSION: 1. No definite acute process. 2. ASHD with cardiomegaly. 3. Exogenous obesity. MTDD
[2020-07-31] MEDS ORDERED: ADVAIR 100/50 INH SCH (21:00)
[2020-07-31] MEDS ORDERED: Latanoprost 0.005% Ophth Soln 2.5 ML Bottle EYEBOTH SCH (21:00)
[2020-08-01] MEDS: Levothyroxine 150 MCG Tab PO SCH (06:15)
[2020-08-01] MEDS ORDERED: Loperamide 2 MG Cap PO ONE (08:38)
[2020-08-01] MEDS: Aspirin 81 MG Tab.EC PO SCH (08:52)
[2020-08-01] MEDS: Metoprolol Tartrate 50 MG Tab PO SCH (08:52)
[2020-08-01 08:53] VITALS: BP 138/74; PULSE 87
--- NOTE | 2020-08-01 14:09 | DISCH ---
DISCHARGE DATE: 08/01/2020 REASON FOR ADMISSION: 1. Vomiting. 2. Grief reaction. 3. Hypertension. 4. Hyponatremia. DISCHARGE DIAGNOSIS: Diarrhea. BRIEF HISTORY: This is an 80-year-old female admitted for vomiting, diarrhea. Initial labs were negative. Her sodium went down to 122, which is believed to be dilutional. She got some fluids, improved, and is ready to go home today. The only new medication is the Lomotil. I spent more than 30 minutes. FOLLOWUP: In 1 week. /[id number] LATISHA/EDEN
== END 2020-08-01 12:58 | disposition home or self-care (01) ==
LOC: FB.ED 19:16 → FB.MS 22:16
PROVIDERS: ADMIT Emergency Medicine; ATTEND Family Medicine
DX: R11.2 Nausea with vomiting, unspecified (principal); E87.1 Hypo-osmolality and hyponatremia; R79.89 Other specified abnormal findings of blood chemistry; F43.21 Adjustment disorder with depressed mood; E03.9 Hypothyroidism, unspecified; I10 Essential (primary) hypertension; K57.30 Diverticulosis of large intestine without perforation or abscess without bleeding; J44.9 Chronic obstructive pulmonary disease, unspecified; Z90.49 Acquired absence of other specified parts of digestive tract; Z20.828 Contact with and (suspected) exposure to other viral communicable diseases; Z88.1 Allergy status to other antibiotic agents; Z88.8 Allergy status to other drugs, medicaments and biological substances; Z91.013 Allergy to seafood; Z79.82 Long term (current) use of aspirin; Z79.899 Other long term (current) drug therapy
CPT/HCPCS: 31500; 36415; 71045; 80048; 80053; 81001; 83605; 83880; 84439; 84443; 84484; 85025; 85379; 85610; 85730; 86140; 87086; 87088; 87186; 87230; 93005; 96361; 96374; 96376; 99217; 99218; 99283; 99285; A9270; G0378; J2405; J7030; U0002; 36410

== ENCOUNTER 2021-12-21 15:41 | Emergency (ER) | payer MEDICARE, OTHER ==
[2021-12-21 17:38] VITALS: BP 128/111; PULSE 71
== END 2021-12-21 18:05 | disposition home or self-care (01) ==
LOC: FB.ED 15:41
DX: R55 Syncope and collapse (principal); J44.9 Chronic obstructive pulmonary disease, unspecified; E03.9 Hypothyroidism, unspecified; Z88.0 Allergy status to penicillin; Z79.899 Other long term (current) drug therapy; Z79.82 Long term (current) use of aspirin
CPT/HCPCS: 36415; 70450; 80048; 81001; 83735; 84484; 85027; 99283; 99284-25

== ENCOUNTER 2022-03-19 20:51 | Emergency (ER) | payer MEDICARE, OTHER ==
[2022-03-19] MEDS ORDERED: Ondansetron 4 MG Tab.DIS PO ONE (20:52)
[2022-03-19] MEDS ORDERED: Ondansetron 4 MG Tab.DIS PO STA (21:22)
[2022-03-19 21:40] LABS: ESTIMATED GFR 86 mL/min (>60)
[2022-03-19 23:55] VITALS: BP 130/95; PULSE 90
== END 2022-03-19 22:35 | disposition home or self-care (01) ==
LOC: FB.ED 20:51
DX: R11.0 Nausea (principal); F43.20 Adjustment disorder, unspecified; J44.9 Chronic obstructive pulmonary disease, unspecified; M19.90 Unspecified osteoarthritis, unspecified site; E03.9 Hypothyroidism, unspecified; Z88.0 Allergy status to penicillin; Z91.013 Allergy to seafood; Z79.82 Long term (current) use of aspirin; Z79.899 Other long term (current) drug therapy; Z20.822 Contact with and (suspected) exposure to COVID-19
CPT/HCPCS: 36415; 80048; 85025; 99283; Q0162; U0002

== ENCOUNTER 2022-04-27 09:18 | Emergency (ER) | payer MEDICARE ==
[2022-04-27 10:06] LABS: ESTIMATED GFR 63 mL/min (>60)
[2022-04-27] MEDS ORDERED: Sodium Chloride 0.9% 1,000 ML IV ONE (10:15)
[2022-04-27] MEDS ORDERED: Ondansetron 4 MG/2 ML SDV IVPUSH ONE (10:16)
[2022-04-27] MEDS ORDERED: Iopamidol 755 Mg/ML 100 ML Bottle IV ONE (10:28)
[2022-04-27] MEDS ORDERED: Morphine 4 MG/ML VIAL IM ONE (10:57)
[2022-04-27] MEDS ORDERED: Morphine 4 MG/ML VIAL IVPUSH ONE ×2 (11:12→13:35)
[2022-04-27] MEDS ORDERED: ceFAZolin 2 GM in Premix Bag 1 BAG IV ONE (13:52)
[2022-04-27 21:03] VITALS: BP 139/72; PULSE 75
== END 2022-04-27 16:10 ==
LOC: FB.ED 09:18
DX: S32.028A Other fracture of second lumbar vertebra, initial encounter for closed fracture (principal); M46.46 Discitis, unspecified, lumbar region; I10 Essential (primary) hypertension; E03.9 Hypothyroidism, unspecified; F17.210 Nicotine dependence, cigarettes, uncomplicated; Z88.0 Allergy status to penicillin; Z91.013 Allergy to seafood; Z79.82 Long term (current) use of aspirin; Z79.899 Other long term (current) drug therapy
CPT/HCPCS: 36415; 74177; 80053; 81001; 85025; 87040; 96361; 96374; 96375; 96376; 99284; 99285-25; J0690; J2270; J2405; J7030; Q9967

== ENCOUNTER 2022-05-12 12:14 | Emergency (ER) | payer MEDICARE ==
[2022-05-12] MEDS ORDERED: Sodium Chloride 0.9% 500 ML IV ONE ×2 (12:34→13:42)
[2022-05-12] MEDS ORDERED: Ondansetron 4 MG/2 ML SDV IVPUSH ONE (12:36)
[2022-05-12 13:06] LABS: ESTIMATED GFR 86 mL/min (>60)
[2022-05-12 13:54] LABS: CORONAVIRUS COVID-19 NAA NEGATIVE (NEGATIVE)
[2022-05-12] MEDS ORDERED: cefTRIAXone 1 GM Vial IVPUSH SCH (14:15)
[2022-05-12] MEDS ORDERED: Acetaminophen/HYDROcodone 325-10 MG Tab PO ONE (14:27)
[2022-05-12] MEDS ORDERED: Acetaminophen/HYDROcodone 325-5 MG Tab PO ONE (14:29)
[2022-05-12 21:34] VITALS: BP 109/59; PULSE 84
== END 2022-05-12 14:37 | disposition home or self-care (01) ==
LOC: FB.ED 12:14
DX: N39.0 Urinary tract infection, site not specified (principal); J44.9 Chronic obstructive pulmonary disease, unspecified; E03.9 Hypothyroidism, unspecified; M19.90 Unspecified osteoarthritis, unspecified site; Z88.0 Allergy status to penicillin; Z79.82 Long term (current) use of aspirin; Z79.899 Other long term (current) drug therapy; Z20.822 Contact with and (suspected) exposure to COVID-19
CPT/HCPCS: 0240U; 80053; 81001; 85025; 96374; 96375; 99284; A9270; J0696; J2405; J7040

== ENCOUNTER 2022-05-24 18:36 | Emergency (ER) | payer MEDICARE ==
[2022-05-24] MEDS ORDERED: traMADol 50 MG Tab PO STA (20:57)
[2022-05-24] MEDS ORDERED: Cephalexin 500 MG Cap PO STA (21:12)
[2022-05-24 22:03] VITALS: BP 141/64; PULSE 98
== END 2022-05-24 21:25 | disposition home or self-care (01) ==
LOC: FB.ED 18:36
DX: S70.01XA Contusion of right hip, initial encounter (principal); J44.9 Chronic obstructive pulmonary disease, unspecified; I10 Essential (primary) hypertension; E66.9 Obesity, unspecified; Z68.32 Body mass index [BMI] 32.0-32.9, adult; Z88.0 Allergy status to penicillin; Z91.013 Allergy to seafood; Z79.82 Long term (current) use of aspirin; Z79.899 Other long term (current) drug therapy; Z90.49 Acquired absence of other specified parts of digestive tract; Z87.891 Personal history of nicotine dependence; W18.39XA Other fall on same level, initial encounter
CPT/HCPCS: 36415; 73502; 81001; 85025; 99284; A9270